=== PATIENT | male | born 1975 | race Hispanic/Latino ===

== ENCOUNTER 2022-04-24 11:35 | Inpatient (IN) | payer OTHER ==
[~2022-04-24] VITALS: Ht 167.6 cm; Wt 101.2 kg
[2022-04-24] VITALS (13 sets, daily range): BP systolic 92–127; BP diastolic 38–53
[2022-04-24 12:10] LABS: BASOPHILS % (AUTO) 0.3 % (0.0-5.0); EOSINOPHILS % (AUTO) 0.7 % (0.0-8.0); LYMPHOCYTES % (AUTO) 18.8 % (21.0-51.0); MEAN CORPUSCULAR HEMOGLOBIN 36.1 pg (27.0-33.0); MEAN CORPUSCULAR HGB CONC 35.4 g/dL (32.0-36.0); MONOCYTES % (AUTO) 16.3 % (3.0-13.0); NEUTROPHILS % (AUTO) 63.3 % (40.0-77.0); NUCLEATED RED BLOOD CELLS 0.2 % (0.0-0.19); PLATELET COUNT (AUTO) 69 K/uL (130-400); RED BLOOD CELL COUNT(AUTO) 2.55 MIL/uL (4.50-6.20); RED CELL DISTRIBUTION WIDTH 16.6 % (11.0-15.5); WHITE BLOOD COUNT (AUTO) 15.4 K/uL (4.8-10.8)
[2022-04-24 12:22] LABS: CREATININE 1.4 mg/dL (0.5-1.5); INR 2.29 (0.85-1.15); POTASSIUM 3.5 mmol/L (3.5-5.1); PROTHROMBIN TIME 23.8 SEC (9.6-11.6)
[2022-04-24 12:24] LABS: PARTIAL THROMBOPLASTIN TIME 40.2 SEC (26.3-35.5)
[2022-04-24 12:27] LABS: ALBUMIN 2.2 g/dL (3.5-5.0); TOTAL PROTEIN, SERUM 5.7 g/dL (6.0-8.3)
[2022-04-24] MEDS ORDERED: PHARMACY COMMUNICATION MISC SCH (12:30)
[2022-04-24] MEDS ORDERED: 0.9% NACL 500ML IV.SOLN 500 ML IV ONE (13:00)
[2022-04-24] MEDS ORDERED: DIAZEPAM 5 MG/ML 2 ML SYG IVP ONE (13:00)
[2022-04-24] MEDS ORDERED: PANTOPRAZOLE 40 MG/VIAL IVP ONE (13:00)
[2022-04-24] MEDS ORDERED: ROCURONIUM BROMIDE 10MG/1ML 5ML VL IV ONE (13:34)
[2022-04-24] MEDS ORDERED: ETOMIDATE 20MG VIAL IVP ONE (13:34)
[2022-04-24 13:54] LABS: PLATELET MORPHOLOGY COMMENT DECREASED
[2022-04-24] MEDS ORDERED: OCTREOTIDE ACETATE 100 MCG/ML AMP IV ONE (14:00)
[2022-04-24] MEDS ORDERED: LACTULOSE 20 GM/30 ML UDCUP PR ONE (14:00)
[2022-04-24] MEDS ORDERED: PHYTONADIONE 10 MG in 0.9%NACL 50ML 50 ML IVPB SCH (14:00)
[2022-04-24] MEDS ORDERED: THIAMINE HCL 100 MG/ML 2ML VIAL IVP SCH (14:00)
[2022-04-24] MEDS ORDERED: CEFTRIAXONE 1G VIAL IVP SCH (14:00)
[2022-04-24] MEDS ORDERED: FOLIC ACID 5 MG/ML VIAL IV ONE (14:00)
[2022-04-24] MEDS ORDERED: OCTREOTIDE ACETATE 1,250 MCG in 0.9% NACL 250ML 250 ML IV SCH (14:00)
[2022-04-24 14:10] LABS: HEMATOCRIT 24.2 % (42-54)
[2022-04-24] MEDS: LACTATED RINGERS 1000ML 1,000 ML IV SCH ×2 (14:24→20:35)
[2022-04-24] MEDS: FOLIC ACID 5 MG/ML VIAL IV SCH (14:45)
[2022-04-24] MEDS: THIAMINE HCL 100 MG/ML 2ML VIAL IVP SCH (14:47)
[2022-04-24] MEDS ORDERED: PROPOFOL 1000 MG/100 ML 100 ML IV ONE (14:58)
[2022-04-24] MEDS ORDERED: PROPOFOL 1000 MG/100 ML 100 ML IV SCH (15:00)
[2022-04-24] MEDS: LACTULOSE 20 GM/30 ML UDCUP PO SCH ×2 (15:00→20:37)
[2022-04-24] MEDS ORDERED: ETOMIDATE 20MG VIAL IVP SCH (15:00)
[2022-04-24] MEDS: RIFAXIMIN 550 MG TABLET PO SCH ×2 (15:08→20:37)
[2022-04-24 15:10] LABS: APPEARANCE,URINE CLEAR (CLEAR); BILIRUBIN,URINE MODERATE (NEGATIVE); COLOR,URINE YELLOW (YELLOW); GLUCOSE, URINE (UA) NEGATIVE (NEGATIVE); KETONES,URINE NEGATIVE (NEGATIVE); LEUKOCYTE ESTERASE ,URINE NEGATIVE (NEGATIVE); NITRATE,URINE NEGATIVE (NEGATIVE); OCCULT BLOOD,URINE NEGATIVE (NEGATIVE); PROTEIN,URINE NEGATIVE (NEGATIVE)
[2022-04-24 15:18] LABS: AMPHET/METH SCREEN,URINE NEGATIVE (NEGATIVE); BARBITURATE SCREEN, URINE NEGATIVE (NEGATIVE); BENZODIAZEPINES SCREEN,URINE NEGATIVE (NEGATIVE); CANNABINOID SCREEN,URINE NEGATIVE (NEGATIVE); COCAINE SCREEN,URINE NEGATIVE (NEGATIVE); OPIATE SCREEN,URINE NEGATIVE (NEGATIVE); PHENCYCLIDINE SCREEN,URINE NEGATIVE (NEGATIVE)
[2022-04-24 15:26] LABS: BACTERIA,URINE Rare /HPF (None Seen); MUCUS,URINE None Seen LPF (None Seen); RBC,URINE 0-1 /HPF (0-1); SQUAMOUS EPITHELIAL CELL,UR Rare /HPF (0-2); WBC,URINE 0-1 /HPF (0-1)
[2022-04-24] MEDS: PANTOPRAZOLE 40MG INJ 80 MG in 0.9%NACL 100ML 100 ML IVP SCH (15:35)
[2022-04-24 15:52] LABS: ABG BASE EXCESS 10.6 mmol/L (-2.0-3.0); ABG HCO3 33.1 mmol/L (21.0-28.0); ABG OXYGEN SATURATION 96.7 % (95.0-99.0); ABG PCO2 37 mmHg (35-48)
[2022-04-24 16:19] LABS: BASOPHILS % (AUTO) 0.4 % (0.0-5.0); EOSINOPHILS % (AUTO) 0.7 % (0.0-8.0); HEMATOCRIT 23.5 % (42-54); LYMPHOCYTES % (AUTO) 17.2 % (21.0-51.0); MEAN CORPUSCULAR HEMOGLOBIN 35.3 pg (27.0-33.0); MEAN CORPUSCULAR HGB CONC 34.9 g/dL (32.0-36.0); MEAN CORPUSCULAR VOLUME 101.3 fL (79-99); MONOCYTES % (AUTO) 16.1 % (3.0-13.0); NUCLEATED RED BLOOD CELLS 0.1 % (0.0-0.19); PLATELET COUNT (AUTO) 66 K/uL (130-400); RED BLOOD CELL COUNT(AUTO) 2.32 MIL/uL (4.50-6.20); WHITE BLOOD COUNT (AUTO) 14.3 K/uL (4.8-10.8)
[2022-04-24 16:34] LABS: CREATININE 1.3 mg/dL (0.5-1.5); POTASSIUM 3.4 mmol/L (3.5-5.1); TOTAL PROTEIN, SERUM 5.1 g/dL (6.0-8.3)
[2022-04-24] MEDS: ZOSYN 3.375GM +NS 50ML IV SCH ×2 (16:57→20:26)
[2022-04-24] MEDS: PROPOFOL 1000 MG/100 ML 100 ML IV SCH (20:26)
[2022-04-24 22:38] LABS: ABG BASE EXCESS 9.5 mmol/L (-2.0-3.0); ABG HCO3 31.8 mmol/L (21.0-28.0); ABG OXYGEN SATURATION 97.2 % (95.0-99.0); ABG PCO2 35 mmHg (35-48)
[2022-04-24] MEDS: IPRATROPIUM/ALBUTEROL SULFATE 3 ML SOLUTION IH SCH (23:36)
[2022-04-25] VITALS (66 sets, daily range): BP systolic 90–136; BP diastolic 39–63
[2022-04-25] MEDS: NOREPINEPHRIN 4MG/NS 250ML 250 ML IV SCH ×4 (00:20→21:18)
[2022-04-25] MEDS: PANTOPRAZOLE 40MG INJ 80 MG in 0.9%NACL 100ML 100 ML IVP SCH ×3 (00:20→20:24)
[2022-04-25] MEDS ORDERED: DIPH25TA20 PO (01:09)
[2022-04-25] MEDS ORDERED: AMOX500T2 PO (01:09)
[2022-04-25] MEDS ORDERED: SPIR100T5 PO (01:09)
[2022-04-25] MEDS ORDERED: FURO40TA5 PO (01:09)
[2022-04-25] MEDS ORDERED: IRON1TAB90 PO (01:09)
[2022-04-25] MEDS ORDERED: METO5TAB2 PO (01:09)
[2022-04-25] MEDS ORDERED: ONDA22I IM (01:09)
[2022-04-25] MEDS ORDERED: CLAR-44 PO (01:09)
[2022-04-25] MEDS ORDERED: OMEP40CA21 PO (01:09)
[2022-04-25 01:19] LABS: HEMATOCRIT 24.1 % (42-54)
[2022-04-25] MEDS: PROPOFOL 1000 MG/100 ML 100 ML IV SCH ×4 (01:55→19:44)
[2022-04-25] MEDS: LACTULOSE 20 GM/30 ML UDCUP PO SCH ×2 (03:16→07:43)
[2022-04-25] MEDS: ZOSYN 3.375GM +NS 50ML IV SCH ×3 (05:01→20:25)
[2022-04-25 05:19] LABS: HEMATOCRIT 24.9 % (42-54)
[2022-04-25 05:43] LABS: CREATININE 1.4 mg/dL (0.5-1.5); TOTAL PROTEIN, SERUM 5.4 g/dL (6.0-8.3)
[2022-04-25] MEDS: IPRATROPIUM/ALBUTEROL SULFATE 3 ML SOLUTION IH SCH ×4 (06:36→23:24)
[2022-04-25] MEDS: RIFAXIMIN 550 MG TABLET PO SCH ×2 (07:56→20:25)
[2022-04-25 09:22] LABS: HEMATOCRIT 23.5 % (42-54)
[2022-04-25] MEDS: THIAMINE HCL 100 MG/ML 2ML VIAL IVP SCH (09:45)
[2022-04-25] MEDS: FOLIC ACID 5 MG/ML VIAL IV SCH (09:46)
[2022-04-25] MEDS ORDERED: COMPOUND IV REFRIGERATED 1 EACH IVSOLN MISC PRN (10:00)
[2022-04-25] MEDS: LACTULOSE 20 GM/30 ML UDCUP NG SCH ×3 (13:15→21:23)
[2022-04-25] MEDS: LACTATED RINGERS 1000ML 1,000 ML IV SCH (13:16)
[2022-04-25] MEDS ORDERED: MIDODRINE HCL 5 MG TABLET PO SCH (14:00)
[2022-04-25 14:58] LABS: HEMATOCRIT 24.2 % (42-54)
[2022-04-25] MEDS ORDERED: ARTIFICAL TEARS SOL 15 ML OU PRN (17:30)
[2022-04-25 21:07] LABS: HEMATOCRIT 25.8 % (42-54)
[2022-04-25] MEDS: MIDODRINE HCL 5 MG TABLET PO SCH (21:22)
[2022-04-26] VITALS (98 sets, daily range): BP systolic 92–134; BP diastolic 41–65
[2022-04-26] MEDS: LACTULOSE 20 GM/30 ML UDCUP NG SCH ×6 (02:00→16:01)
[2022-04-26] MEDS: PROPOFOL 1000 MG/100 ML 100 ML IV SCH ×5 (02:07→20:45)
[2022-04-26] MEDS: LACTATED RINGERS 1000ML 1,000 ML IV SCH (02:16)
[2022-04-26 03:38] LABS: ABG BASE EXCESS 10.4 mmol/L (-2.0-3.0); ABG HCO3 34.5 mmol/L (21.0-28.0); ABG OXYGEN SATURATION 96.2 % (95.0-99.0); ABG PCO2 45 mmHg (35-48)
[2022-04-26 03:51] LABS: BASOPHILS % (AUTO) 0.6 % (0.0-5.0); EOSINOPHILS % (AUTO) 2.2 % (0.0-8.0); HEMATOCRIT 23.2 % (42-54); LYMPHOCYTES % (AUTO) 17.8 % (21.0-51.0); MEAN CORPUSCULAR HEMOGLOBIN 36.2 pg (27.0-33.0); MEAN CORPUSCULAR HGB CONC 34.5 g/dL (32.0-36.0); NEUTROPHILS % (AUTO) 57.7 % (40.0-77.0); PLATELET COUNT (AUTO) 85 K/uL (130-400); RED BLOOD CELL COUNT(AUTO) 2.21 MIL/uL (4.50-6.20); RED CELL DISTRIBUTION WIDTH 19.1 % (11.0-15.5); WHITE BLOOD COUNT (AUTO) 12.7 K/uL (4.8-10.8)
[2022-04-26 04:13] LABS: ALANINE AMINOTRANSFERASE 76 U/L (12-78); ALBUMIN 1.9 g/dL (3.5-5.0); AMMONIA 57 umol/L (11-32); ASPARTATE AMINOTRANSFERASE 165 U/L (10-37); CARBON DIOXIDE 32 mmol/L (21-32); CHLORIDE 108 mmol/L (101-111); CREATININE 1.4 mg/dL (0.5-1.5); GLOMERULAR FILTR. RATE CALC 58 mL/min (>60); GLUCOSE,RANDOM 162 mg/dL (70-105); SODIUM SERUM 146 mmol/L (136-145); TOTAL PROTEIN, SERUM 5.3 g/dL (6.0-8.3); UREA NITROGEN, BLOOD 50 mg/dL (7-18)
[2022-04-26] MEDS: ZOSYN 3.375GM +NS 50ML IV SCH ×3 (05:15→21:38)
[2022-04-26] MEDS: PANTOPRAZOLE 40MG INJ 80 MG in 0.9%NACL 100ML 100 ML IVP SCH ×2 (05:16→15:47)
[2022-04-26] MEDS: MIDODRINE HCL 5 MG TABLET PO SCH ×3 (05:16→21:38)
[2022-04-26] MEDS ORDERED: POTASSIUM CHLORIDE 20MEQ/100ML 100 ML IV ONE (05:46)
[2022-04-26] MEDS: POTASSIUM CHLORIDE 20MEQ/100ML 100 ML IV PRN ×2 (05:50→07:40)
[2022-04-26] MEDS ORDERED: MAGNESIUM 2GM PREMIX 50ML 50 ML IV PRN (06:00)
[2022-04-26] MEDS: IPRATROPIUM/ALBUTEROL SULFATE 3 ML SOLUTION IH SCH ×4 (06:32→23:13)
[2022-04-26 07:11] LABS: INR 1.8 (0.85-1.15)
[2022-04-26] MEDS: RIFAXIMIN 550 MG TABLET PO SCH ×2 (08:20→21:38)
[2022-04-26] MEDS: THIAMINE HCL 100 MG/ML 2ML VIAL IVP SCH (08:20)
[2022-04-26] MEDS: FOLIC ACID 5 MG/ML VIAL IV SCH (08:23)
[2022-04-26] MEDS: DEXTROSE 5%-WATER 1,000 ML IV SCH ×2 (09:58→21:39)
[2022-04-26 13:25] LABS: HEMATOCRIT 25.2 % (42-54)
[2022-04-26 14:10] LABS: CREATININE 1.3 mg/dL (0.5-1.5); POTASSIUM 3.3 mmol/L (3.5-5.1)
[2022-04-27] VITALS (57 sets, daily range): BP systolic 91–142; BP diastolic 44–74
[2022-04-27] MEDS: LACTULOSE 20 GM/30 ML UDCUP NG SCH ×4 (01:12→17:57)
[2022-04-27] MEDS: PANTOPRAZOLE 40MG INJ 80 MG in 0.9%NACL 100ML 100 ML IVP SCH ×2 (01:13→10:50)
[2022-04-27] MEDS: PROPOFOL 1000 MG/100 ML 100 ML IV SCH ×2 (01:30→07:09)
[2022-04-27 04:40] LABS: HEMATOCRIT 25.2 % (42-54); MEAN CORPUSCULAR HEMOGLOBIN 36.5 pg (27.0-33.0); MEAN CORPUSCULAR HGB CONC 33.7 g/dL (32.0-36.0); MEAN CORPUSCULAR VOLUME 108.2 fL (79-99); PLATELET COUNT (AUTO) 87 K/uL (130-400); RED BLOOD CELL COUNT(AUTO) 2.33 MIL/uL (4.50-6.20); RED CELL DISTRIBUTION WIDTH 19.9 % (11.0-15.5); WHITE BLOOD COUNT (AUTO) 12.2 K/uL (4.8-10.8)
[2022-04-27 04:56] LABS: CREATININE 1.3 mg/dL (0.5-1.5); POTASSIUM 3.1 mmol/L (3.5-5.1)
[2022-04-27 05:28] LABS: BASOPHILS % (AUTO) 0.9 % (0.0-5.0); EOSINOPHILS % (AUTO) 3.8 % (0.0-8.0); LYMPHOCYTES % (AUTO) 20.2 % (21.0-51.0); MONOCYTES % (AUTO) 26.1 % (3.0-13.0); NEUTROPHILS % (AUTO) 48.3 % (40.0-77.0)
[2022-04-27] MEDS ORDERED: POTASSIUM CHLORIDE 10MEQ/100ML 100 ML IV PRN (05:30)
[2022-04-27] MEDS: ZOSYN 3.375GM +NS 50ML IV SCH ×3 (06:12→20:21)
[2022-04-27] MEDS: MIDODRINE HCL 5 MG TABLET PO SCH (06:13)
[2022-04-27] MEDS: POTASSIUM CHLORIDE 10% ELIXIR 20 MEQ/15 ML UDCUP PO PRN ×3 (06:15→10:07)
[2022-04-27] MEDS: IPRATROPIUM/ALBUTEROL SULFATE 3 ML SOLUTION IH SCH ×3 (06:55→18:24)
[2022-04-27 07:05] LABS: CRP QUANTITATIVE 30.4 mg/L (0.00-9.0); MAGNESIUM 2.9 mg/dL (1.80-2.40)
[2022-04-27] MEDS: THIAMINE HCL 100 MG/ML 2ML VIAL IVP SCH (08:01)
[2022-04-27] MEDS: FOLIC ACID 5 MG/ML VIAL IV SCH (08:02)
[2022-04-27] MEDS: RIFAXIMIN 550 MG TABLET PO SCH ×2 (08:02→20:18)
[2022-04-27] MEDS: DEXTROSE 5%-WATER 1,000 ML IV SCH (10:50)
[2022-04-27 11:32] LABS: ABG HCO3 32.4 mmol/L (21.0-28.0); ABG OXYGEN SATURATION 96.4 % (95.0-99.0); ABG PCO2 49 mmHg (35-48)
[2022-04-27] MEDS ORDERED: MIDODRINE HCL 5 MG TABLET PO PRN (12:00)
[2022-04-27] MEDS ORDERED: CHLORDIAZEPOXIDE HCL 25 MG CAP PO PRN (13:00)
[2022-04-27] MEDS: PANTOPRAZOLE 40 MG/VIAL IVP SCH (20:18)
[2022-04-28] VITALS (14 sets, daily range): BP systolic 100–120; BP diastolic 48–66
[2022-04-28] MEDS: LACTULOSE 20 GM/30 ML UDCUP NG SCH ×4 (00:06→17:27)
[2022-04-28] MEDS: IPRATROPIUM/ALBUTEROL SULFATE 3 ML SOLUTION IH SCH ×5 (00:56→23:25)
[2022-04-28 03:34] LABS: HEMATOCRIT 24.4 % (42-54); MEAN CORPUSCULAR HEMOGLOBIN 35.7 pg (27.0-33.0); MEAN CORPUSCULAR HGB CONC 32.8 g/dL (32.0-36.0); MEAN CORPUSCULAR VOLUME 108.9 fL (79-99); RED BLOOD CELL COUNT(AUTO) 2.24 MIL/uL (4.50-6.20); RED CELL DISTRIBUTION WIDTH 19.7 % (11.0-15.5); WHITE BLOOD COUNT (AUTO) 11.6 K/uL (4.8-10.8)
[2022-04-28 04:01] LABS: ALBUMIN 1.9 g/dL (3.5-5.0); CREATININE 1.1 mg/dL (0.5-1.5); POTASSIUM 3.6 mmol/L (3.5-5.1); TOTAL PROTEIN, SERUM 5.6 g/dL (6.0-8.3)
[2022-04-28] MEDS: ZOSYN 3.375GM +NS 50ML IV SCH ×3 (05:49→20:19)
[2022-04-28] MEDS: DEXTROSE 5%-WATER 1,000 ML IV SCH (06:00)
[2022-04-28] MEDS: POTASSIUM CHLORIDE 10% ELIXIR 20 MEQ/15 ML UDCUP PO PRN ×2 (07:48→10:00)
[2022-04-28] MEDS: PANTOPRAZOLE 40 MG/VIAL IVP SCH ×2 (08:04→20:20)
[2022-04-28] MEDS: RIFAXIMIN 550 MG TABLET PO SCH ×2 (08:04→20:20)
[2022-04-28] MEDS: THIAMINE HCL 100 MG/ML 2ML VIAL IVP SCH (08:04)
[2022-04-28] MEDS: FOLIC ACID 5 MG/ML VIAL IV SCH (09:58)
[2022-04-29] VITALS (7 sets, daily range): BP systolic 93–113; BP diastolic 45–73
[2022-04-29] MEDS: LACTULOSE 20 GM/30 ML UDCUP NG SCH ×4 (00:13→22:20)
[2022-04-29] MEDS: ZOSYN 3.375GM +NS 50ML IV SCH ×3 (05:07→22:30)
[2022-04-29] MEDS: IPRATROPIUM/ALBUTEROL SULFATE 3 ML SOLUTION IH SCH ×4 (06:48→23:35)
[2022-04-29 07:06] LABS: BASOPHILS % (AUTO) 1.1 % (0.0-5.0); EOSINOPHILS % (AUTO) 1.7 % (0.0-8.0); LYMPHOCYTES % (AUTO) 20.6 % (21.0-51.0); MEAN CORPUSCULAR HEMOGLOBIN 36.1 pg (27.0-33.0); MEAN CORPUSCULAR HGB CONC 33.1 g/dL (32.0-36.0); MEAN CORPUSCULAR VOLUME 109.2 fL (79-99); MONOCYTES % (AUTO) 24.6 % (3.0-13.0); NEUTROPHILS % (AUTO) 49.7 % (40.0-77.0); NUCLEATED RED BLOOD CELLS 0.2 % (0.0-0.19); PLATELET COUNT (AUTO) 119 K/uL (130-400); RED BLOOD CELL COUNT(AUTO) 2.38 MIL/uL (4.50-6.20); RED CELL DISTRIBUTION WIDTH 19.6 % (11.0-15.5)
[2022-04-29 07:24] LABS: ALBUMIN 2.1 g/dL (3.5-5.0); CREATININE 0.9 mg/dL (0.5-1.5); POTASSIUM 4.1 mmol/L (3.5-5.1); TOTAL PROTEIN, SERUM 6.1 g/dL (6.0-8.3)
[2022-04-29] MEDS: RIFAXIMIN 550 MG TABLET PO SCH ×2 (10:25→22:20)
[2022-04-29] MEDS: THIAMINE HCL 100 MG/ML 2ML VIAL IVP SCH (10:25)
[2022-04-29] MEDS: PANTOPRAZOLE 40 MG/VIAL IVP SCH ×2 (10:25→22:20)
[2022-04-29] MEDS: FOLIC ACID 5 MG/ML VIAL IV SCH (10:28)
[2022-04-29] MEDS ORDERED: DEXTROSE 5%-WATER 500 ML IV ONE (11:30)
[2022-04-29 17:19] LABS: POTASSIUM 3.3 mmol/L (3.5-5.1)
[2022-04-29] MEDS: KCL 20 MEQ ERTAB PO PRN (17:27)
[2022-04-30 04:50] VITALS: BP 111/56
[2022-04-30] MEDS: ZOSYN 3.375GM +NS 50ML IV SCH ×3 (05:23→21:15)
[2022-04-30] MEDS: IPRATROPIUM/ALBUTEROL SULFATE 3 ML SOLUTION IH SCH ×4 (06:33→23:24)
[2022-04-30 07:03] LABS: BASOPHILS % (AUTO) 0.8 % (0.0-5.0); EOSINOPHILS % (AUTO) 1.9 % (0.0-8.0); HEMATOCRIT 22.6 % (42-54); LYMPHOCYTES % (AUTO) 26.2 % (21.0-51.0); MEAN CORPUSCULAR HEMOGLOBIN 36.2 pg (27.0-33.0); MEAN CORPUSCULAR HGB CONC 34.1 g/dL (32.0-36.0); MEAN CORPUSCULAR VOLUME 106.1 fL (79-99); MONOCYTES % (AUTO) 21.3 % (3.0-13.0); NEUTROPHILS % (AUTO) 47.7 % (40.0-77.0); PLATELET COUNT (AUTO) 147 K/uL (130-400); RED BLOOD CELL COUNT(AUTO) 2.13 MIL/uL (4.50-6.20); RED CELL DISTRIBUTION WIDTH 18.5 % (11.0-15.5); WHITE BLOOD COUNT (AUTO) 13.5 K/uL (4.8-10.8)
[2022-04-30 07:04] LABS: NUCLEATED RED BLOOD CELLS 0.4 % (0.0-0.19)
[2022-04-30 07:23] LABS: ALBUMIN 1.9 g/dL (3.5-5.0); POTASSIUM 3.5 mmol/L (3.5-5.1); TOTAL PROTEIN, SERUM 5.7 g/dL (6.0-8.3)
[2022-04-30 08:00] VITALS: BP 109/63
[2022-04-30] MEDS: FOLIC ACID 5 MG/ML VIAL IV SCH (09:41)
[2022-04-30] MEDS: PANTOPRAZOLE 40 MG/VIAL IVP SCH ×2 (09:43→21:14)
[2022-04-30] MEDS: LACTULOSE 20 GM/30 ML UDCUP NG SCH ×4 (09:47→21:14)
[2022-04-30] MEDS: THIAMINE HCL 100 MG/ML 2ML VIAL IVP SCH (09:47)
[2022-04-30] MEDS: RIFAXIMIN 550 MG TABLET PO SCH ×3 (09:48→21:14)
[2022-04-30 12:00] VITALS: BP 103/57
[2022-04-30 16:00] VITALS: BP 121/71
[2022-04-30 20:33] VITALS: BP 117/67
[2022-04-30] MEDS ORDERED: ONDANSETRON 4MG INJ ONE (21:10)
[2022-05-01 00:26] VITALS: BP 115/69
[2022-05-01] MEDS: RIFAXIMIN 550 MG TABLET PO SCH ×2 (03:36→21:15)
[2022-05-01] MEDS: LACTULOSE 20 GM/30 ML UDCUP NG SCH ×3 (03:36→21:15)
[2022-05-01 04:19] VITALS: BP 111/63
[2022-05-01] MEDS: ZOSYN 3.375GM +NS 50ML IV SCH ×3 (05:05→21:15)
[2022-05-01] MEDS: IPRATROPIUM/ALBUTEROL SULFATE 3 ML SOLUTION IH SCH ×4 (06:11→23:44)
[2022-05-01 06:51] LABS: BASOPHILS % (AUTO) 0.9 % (0.0-5.0); EOSINOPHILS % (AUTO) 1.3 % (0.0-8.0); HEMATOCRIT 22.9 % (42-54); LYMPHOCYTES % (AUTO) 22.2 % (21.0-51.0); MEAN CORPUSCULAR HEMOGLOBIN 36.7 pg (27.0-33.0); MEAN CORPUSCULAR HGB CONC 34.9 g/dL (32.0-36.0); MONOCYTES % (AUTO) 17.7 % (3.0-13.0); NEUTROPHILS % (AUTO) 56.6 % (40.0-77.0); NUCLEATED RED BLOOD CELLS 0.2 % (0.0-0.19); PLATELET COUNT (AUTO) 149 K/uL (130-400); RED BLOOD CELL COUNT(AUTO) 2.18 MIL/uL (4.50-6.20); RED CELL DISTRIBUTION WIDTH 18.3 % (11.0-15.5); WHITE BLOOD COUNT (AUTO) 12.7 K/uL (4.8-10.8)
[2022-05-01 07:04] LABS: INR 1.67 (0.85-1.15); PROTHROMBIN TIME 17.7 SEC (9.6-11.6)
[2022-05-01 07:08] LABS: ALBUMIN 1.9 g/dL (3.5-5.0); POTASSIUM 3.5 mmol/L (3.5-5.1); TOTAL PROTEIN, SERUM 5.9 g/dL (6.0-8.3)
[2022-05-01 09:22] VITALS: BP 132/72
[2022-05-01] MEDS: PANTOPRAZOLE 40 MG/VIAL IVP SCH ×2 (10:23→21:14)
[2022-05-01] MEDS: THIAMINE HCL 100 MG/ML 2ML VIAL IVP SCH (10:23)
[2022-05-01] MEDS: FOLIC ACID 5 MG/ML VIAL IV SCH (10:24)
[2022-05-01 11:00] VITALS: BP 127/64
[2022-05-01 16:00] VITALS: BP 112/63
[2022-05-01 20:00] VITALS: BP 104/50
[2022-05-01] MEDS: POTASSIUM CHLORIDE 10% ELIXIR 20 MEQ/15 ML UDCUP PO PRN (21:31)
[2022-05-02 00:28] VITALS: BP 106/47
[2022-05-02 04:43] VITALS: BP 104/54
[2022-05-02] MEDS: ZOSYN 3.375GM +NS 50ML IV SCH ×3 (05:02→20:32)
[2022-05-02] MEDS: IPRATROPIUM/ALBUTEROL SULFATE 3 ML SOLUTION IH SCH ×4 (06:40→23:18)
[2022-05-02 07:54] LABS: BASOPHILS % (AUTO) 0.6 % (0.0-5.0); EOSINOPHILS % (AUTO) 1.2 % (0.0-8.0); HEMATOCRIT 21.7 % (42-54); LYMPHOCYTES % (AUTO) 22.5 % (21.0-51.0); MEAN CORPUSCULAR HEMOGLOBIN 35.4 pg (27.0-33.0); MEAN CORPUSCULAR HGB CONC 34.1 g/dL (32.0-36.0); MEAN CORPUSCULAR VOLUME 103.8 fL (79-99); MONOCYTES % (AUTO) 14.6 % (3.0-13.0); NEUTROPHILS % (AUTO) 59.7 % (40.0-77.0); PLATELET COUNT (AUTO) 146 K/uL (130-400); RED BLOOD CELL COUNT(AUTO) 2.09 MIL/uL (4.50-6.20); RED CELL DISTRIBUTION WIDTH 18.7 % (11.0-15.5)
[2022-05-02 08:22] VITALS: BP 115/63
[2022-05-02 09:32] LABS: ALBUMIN 1.8 g/dL (3.5-5.0); POTASSIUM 3.4 mmol/L (3.5-5.1); TOTAL PROTEIN, SERUM 5.9 g/dL (6.0-8.3)
[2022-05-02] MEDS: THIAMINE HCL 100 MG/ML 2ML VIAL IVP SCH (09:35)
[2022-05-02] MEDS: PANTOPRAZOLE 40 MG/VIAL IVP SCH ×2 (09:35→20:32)
[2022-05-02] MEDS: RIFAXIMIN 550 MG TABLET PO SCH ×2 (09:37→20:33)
[2022-05-02] MEDS: LACTULOSE 20 GM/30 ML UDCUP NG SCH ×3 (09:42→20:33)
[2022-05-02] MEDS: FOLIC ACID 5 MG/ML VIAL IV SCH (10:52)
[2022-05-02] MEDS ORDERED: METOCLOPRAMIDE 5 MG TABLET PO PRN (11:30)
[2022-05-02] MEDS ORDERED: DIPHENHYDRAMINE HCL 25 MG CAPSULE PO PRN (11:30)
[2022-05-02 11:54] VITALS: BP 121/65
[2022-05-02] MEDS: BENZONATATE 100 MG CAPSULE PO PRN ×2 (12:17→20:33)
[2022-05-02] MEDS: FLUTICASONE PROPIONATE 50MCG/SPRAY 16 GM BOTTLE EN SCH (13:44)
[2022-05-02] MEDS: CETIRIZINE HCL 5 MG TABLET PO SCH (13:46)
[2022-05-02] MEDS: FUROSEMIDE 40 MG TABLET PO SCH (13:46)
[2022-05-02] MEDS: OSELTAMIVIR PHOSPHATE 75 MG CAP PO SCH ×2 (15:32→20:33)
[2022-05-02 15:55] VITALS: BP 103/50
[2022-05-02 19:00] VITALS: BP 122/67
[2022-05-02] MEDS: KETOROLAC 15MG/ML VIAL (15MG/ML) IV PRN (20:33)
[2022-05-03] VITALS: BP 106/58
[2022-05-03 04:00] VITALS: BP 91/62
[2022-05-03] MEDS: ZOSYN 3.375GM +NS 50ML IV SCH ×3 (05:22→21:00)
[2022-05-03] MEDS: KETOROLAC 15MG/ML VIAL (15MG/ML) IV PRN ×3 (05:24→18:21)
[2022-05-03] MEDS: BENZONATATE 100 MG CAPSULE PO PRN ×2 (05:24→12:10)
[2022-05-03] MEDS: IPRATROPIUM/ALBUTEROL SULFATE 3 ML SOLUTION IH SCH ×4 (06:25→23:20)
[2022-05-03 06:34] LABS: HEMATOCRIT 21.2 % (42-54); MEAN CORPUSCULAR HEMOGLOBIN 35.6 pg (27.0-33.0); MEAN CORPUSCULAR HGB CONC 34.4 g/dL (32.0-36.0); MEAN CORPUSCULAR VOLUME 103.4 fL (79-99); PLATELET COUNT (AUTO) 149 K/uL (130-400); RED BLOOD CELL COUNT(AUTO) 2.05 MIL/uL (4.50-6.20); RED CELL DISTRIBUTION WIDTH 18.7 % (11.0-15.5); WHITE BLOOD COUNT (AUTO) 12.2 K/uL (4.8-10.8)
[2022-05-03 06:51] LABS: ALBUMIN 1.7 g/dL (3.5-5.0); CREATININE 1.2 mg/dL (0.5-1.5); MAGNESIUM 2.1 mg/dL (1.80-2.40); POTASSIUM 3.3 mmol/L (3.5-5.1); TOTAL PROTEIN, SERUM 5.6 g/dL (6.0-8.3)
[2022-05-03 08:00] VITALS: BP 101/66
[2022-05-03] MEDS ORDERED: FUROSEMIDE 40 MG TABLET PO SCH (09:00)
[2022-05-03] MEDS ORDERED: SPIRONOLACTONE 25 MG TAB PO SCH (09:00)
[2022-05-03 11:33] VITALS: BP 126/67
[2022-05-03] MEDS: RIFAXIMIN 550 MG TABLET PO SCH ×2 (11:52→21:01)
[2022-05-03] MEDS: FUROSEMIDE 40 MG TABLET PO SCH (11:52)
[2022-05-03] MEDS: THIAMINE HCL 100 MG/ML 2ML VIAL IVP SCH (11:52)
[2022-05-03] MEDS: PANTOPRAZOLE 40 MG/VIAL IVP SCH ×2 (11:54→21:01)
[2022-05-03] MEDS: OSELTAMIVIR PHOSPHATE 75 MG CAP PO SCH ×2 (11:54→21:01)
[2022-05-03] MEDS: LACTULOSE 20 GM/30 ML UDCUP NG SCH ×3 (11:55→21:01)
[2022-05-03] MEDS: KCL 20 MEQ ERTAB PO PRN (11:57)
[2022-05-03] MEDS: CETIRIZINE HCL 5 MG TABLET PO SCH (12:00)
[2022-05-03] MEDS: FOLIC ACID 5 MG/ML VIAL IV SCH (12:11)
[2022-05-03 16:00] VITALS: BP 95/54
[2022-05-03] MEDS: FLUTICASONE PROPIONATE 50MCG/SPRAY 16 GM BOTTLE EN SCH (18:14)
[2022-05-03 20:56] VITALS: BP 107/53
[2022-05-04 00:48] VITALS: BP 112/45
[2022-05-04 04:19] VITALS: BP 98/48
[2022-05-04 05:04] LABS: HEMATOCRIT 21.4 % (42-54); MEAN CORPUSCULAR HEMOGLOBIN 35.4 pg (27.0-33.0); MEAN CORPUSCULAR HGB CONC 34.1 g/dL (32.0-36.0); MEAN CORPUSCULAR VOLUME 103.9 fL (79-99); RED BLOOD CELL COUNT(AUTO) 2.06 MIL/uL (4.50-6.20); RED CELL DISTRIBUTION WIDTH 19.4 % (11.0-15.5); WHITE BLOOD COUNT (AUTO) 14.2 K/uL (4.8-10.8)
[2022-05-04 05:23] LABS: CREATININE 1.4 mg/dL (0.5-1.5); POTASSIUM 3.8 mmol/L (3.5-5.1)
[2022-05-04] MEDS: ZOSYN 3.375GM +NS 50ML IV SCH ×3 (05:43→21:25)
[2022-05-04] MEDS: IPRATROPIUM/ALBUTEROL SULFATE 3 ML SOLUTION IH SCH ×4 (06:26→23:33)
[2022-05-04 08:00] VITALS: BP 107/52
[2022-05-04] MEDS: FLUTICASONE PROPIONATE 50MCG/SPRAY 16 GM BOTTLE EN SCH (08:31)
[2022-05-04] MEDS: OSELTAMIVIR PHOSPHATE 75 MG CAP PO SCH ×2 (08:32→21:26)
[2022-05-04] MEDS: CETIRIZINE HCL 5 MG TABLET PO SCH (08:32)
[2022-05-04] MEDS: RIFAXIMIN 550 MG TABLET PO SCH ×2 (08:32→21:26)
[2022-05-04] MEDS: SPIRONOLACTONE 25 MG TAB PO SCH (08:32)
[2022-05-04] MEDS: KCL 20 MEQ ERTAB PO PRN ×2 (08:32→15:15)
[2022-05-04] MEDS: LACTULOSE 20 GM/30 ML UDCUP NG SCH ×3 (08:33→21:26)
[2022-05-04] MEDS: PANTOPRAZOLE 40 MG/VIAL IVP SCH ×2 (08:33→21:26)
[2022-05-04] MEDS: FUROSEMIDE 20 MG TABLET PO SCH (08:33)
[2022-05-04] MEDS: THIAMINE HCL 100 MG/ML 2ML VIAL IVP SCH (08:33)
[2022-05-04] MEDS: FOLIC ACID 5 MG/ML VIAL IV SCH (08:34)
[2022-05-04 12:00] VITALS: BP 104/71
[2022-05-04] MEDS: KETOROLAC 15MG/ML VIAL (15MG/ML) IV PRN ×2 (12:18→22:57)
[2022-05-04 16:00] VITALS: BP 86/53
[2022-05-04 20:00] VITALS: BP 110/59
[2022-05-04 20:13] LABS: APPEARANCE BODY FLUID SLIGHTLY CLOUDY (CLEAR); COLOR,BODY FLUID YELLOW (LT YELLOW); SPECIMENTYPE,BODY FLUID ASCITES; TOTAL VOLUME,BODY FLUID 1800 mL
[2022-05-04 20:14] LABS: BODY FLUID RBC 169 /cu. mm.; BODY FLUID WBC 49 /cu. mm.
[2022-05-04 21:25] LABS: BF LYMPHOCYTE 7 %; BF MONOCYTE 2 %; BF OTHER CELLS 3
[2022-05-05] VITALS: BP 108/60
[2022-05-05 04:00] VITALS: BP 103/46
[2022-05-05] MEDS: ZOSYN 3.375GM +NS 50ML IV SCH ×3 (04:50→20:30)
[2022-05-05 05:21] LABS: MEAN CORPUSCULAR HEMOGLOBIN 35.9 pg (27.0-33.0); MEAN CORPUSCULAR HGB CONC 34.3 g/dL (32.0-36.0); MEAN CORPUSCULAR VOLUME 104.5 fL (79-99); RED BLOOD CELL COUNT(AUTO) 1.98 MIL/uL (4.50-6.20); RED CELL DISTRIBUTION WIDTH 19.7 % (11.0-15.5); WHITE BLOOD COUNT (AUTO) 13.9 K/uL (4.8-10.8)
[2022-05-05 05:28] LABS: HEMATOCRIT 20.7 % (42-54)
[2022-05-05 05:33] LABS: CREATININE 1.4 mg/dL (0.5-1.5); POTASSIUM 3.9 mmol/L (3.5-5.1)
[2022-05-05] MEDS: IPRATROPIUM/ALBUTEROL SULFATE 3 ML SOLUTION IH SCH ×4 (07:20→23:00)
[2022-05-05 08:35] VITALS: BP 119/60
[2022-05-05] MEDS: SPIRONOLACTONE 25 MG TAB PO SCH ×3 (08:35→20:32)
[2022-05-05] MEDS: RIFAXIMIN 550 MG TABLET PO SCH ×2 (08:35→20:32)
[2022-05-05] MEDS: LACTULOSE 20 GM/30 ML UDCUP NG SCH ×3 (08:36→20:53)
[2022-05-05] MEDS: PANTOPRAZOLE 40 MG/VIAL IVP SCH ×2 (08:36→20:31)
[2022-05-05] MEDS: THIAMINE HCL 100 MG/ML 2ML VIAL IVP SCH (08:36)
[2022-05-05] MEDS: OSELTAMIVIR PHOSPHATE 75 MG CAP PO SCH ×2 (08:36→20:31)
[2022-05-05] MEDS: FUROSEMIDE 20 MG TABLET PO SCH ×3 (08:36→20:32)
[2022-05-05] MEDS: FLUTICASONE PROPIONATE 50MCG/SPRAY 16 GM BOTTLE EN SCH (08:37)
[2022-05-05] MEDS: FOLIC ACID 5 MG/ML VIAL IV SCH (08:37)
[2022-05-05] MEDS: CETIRIZINE HCL 5 MG TABLET PO SCH (08:38)
[2022-05-05] MEDS: BENZONATATE 100 MG CAPSULE PO PRN (08:47)
[2022-05-05 09:06] LABS: HEMATOCRIT 23.6 % (42-54)
[2022-05-05 12:00] VITALS: BP 121/65
[2022-05-05 16:00] VITALS: BP_SYST 121; BP_SYST 137; BP_DIAS 71; BP_DIAS 75
[2022-05-05 20:00] VITALS: BP 115/74
[2022-05-05] MEDS: KETOROLAC 15MG/ML VIAL (15MG/ML) IV PRN (20:31)
[2022-05-06] VITALS: BP 98/42
[2022-05-06 04:00] VITALS: BP 107/55
[2022-05-06 05:02] LABS: BASOPHILS % (AUTO) 0.8 % (0.0-5.0); EOSINOPHILS % (AUTO) 1.9 % (0.0-8.0); MEAN CORPUSCULAR HEMOGLOBIN 35.9 pg (27.0-33.0); MEAN CORPUSCULAR HGB CONC 34.1 g/dL (32.0-36.0); MEAN CORPUSCULAR VOLUME 105.1 fL (79-99); MONOCYTES % (AUTO) 9.5 % (3.0-13.0); PLATELET COUNT (AUTO) 139 K/uL (130-400); RED BLOOD CELL COUNT(AUTO) 1.95 MIL/uL (4.50-6.20); RED CELL DISTRIBUTION WIDTH 19.4 % (11.0-15.5); WHITE BLOOD COUNT (AUTO) 13.2 K/uL (4.8-10.8)
[2022-05-06 05:11] LABS: HEMATOCRIT 20.5 % (42-54)
[2022-05-06 05:14] LABS: CREATININE 1.2 mg/dL (0.5-1.5); POTASSIUM 4.3 mmol/L (3.5-5.1)
[2022-05-06] MEDS: ZOSYN 3.375GM +NS 50ML IV SCH (05:22)
[2022-05-06] MEDS: IPRATROPIUM/ALBUTEROL SULFATE 3 ML SOLUTION IH SCH (07:15)
[2022-05-06 08:00] VITALS: BP 106/55
[2022-05-06] MEDS: FOLIC ACID 5 MG/ML VIAL IV SCH (08:17)
[2022-05-06] MEDS: PANTOPRAZOLE 40 MG/VIAL IVP SCH (08:17)
[2022-05-06] MEDS: FLUTICASONE PROPIONATE 50MCG/SPRAY 16 GM BOTTLE EN SCH (08:17)
[2022-05-06] MEDS: LACTULOSE 20 GM/30 ML UDCUP NG SCH (08:17)
[2022-05-06] MEDS: THIAMINE HCL 100 MG/ML 2ML VIAL IVP SCH (08:17)
[2022-05-06] MEDS: CETIRIZINE HCL 5 MG TABLET PO SCH (08:18)
[2022-05-06] MEDS: SPIRONOLACTONE 25 MG TAB PO SCH (08:18)
[2022-05-06] MEDS: OSELTAMIVIR PHOSPHATE 75 MG CAP PO SCH (08:18)
[2022-05-06] MEDS: FUROSEMIDE 20 MG TABLET PO SCH (08:18)
[2022-05-06] MEDS: RIFAXIMIN 550 MG TABLET PO SCH (08:18)
[2022-05-06] MEDS: KETOROLAC 15MG/ML VIAL (15MG/ML) IV PRN (08:19)
[2022-05-06 11:51] LABS: BASOPHILS % (AUTO) 0.7 % (0.0-5.0); EOSINOPHILS % (AUTO) 2.2 % (0.0-8.0); HEMATOCRIT 21.9 % (42-54); LYMPHOCYTES % (AUTO) 13.1 % (21.0-51.0); MEAN CORPUSCULAR HEMOGLOBIN 34.9 pg (27.0-33.0); MEAN CORPUSCULAR HGB CONC 33.3 g/dL (32.0-36.0); MEAN CORPUSCULAR VOLUME 104.8 fL (79-99); MONOCYTES % (AUTO) 9.3 % (3.0-13.0); PLATELET COUNT (AUTO) 160 K/uL (130-400); RED BLOOD CELL COUNT(AUTO) 2.09 MIL/uL (4.50-6.20); RED CELL DISTRIBUTION WIDTH 19.6 % (11.0-15.5)
[2022-05-06 12:00] VITALS: BP 100/50
[2022-05-07] MEDS ORDERED: FURO40TA7 PO (17:43)
== END 2022-05-06 13:05 | disposition home or self-care (01) | DRG 208 ==
LOC: EDH 11:35 → EDHIP 13:42 → 2BH 20:05 → 3CH 04-28 21:47
PROVIDERS: ADMIT Hospitalist; ATTEND Hospitalist
PROC: 5A1945Z Respiratory Ventilation, 24-96 Consecutive Hours (ICD-10-PCS; principal; 2022-04-24)
PROC: 0BH17EZ Insertion of Endotracheal Airway into Trachea, Via Natural or Artificial Opening (ICD-10-PCS; 2022-04-24)
PROC: 5A09357 Assistance with Respiratory Ventilation, Less than 24 Consecutive Hours, Continuous Positive Airway Pressure (ICD-10-PCS; 2022-04-27)
PROC: 0W9G3ZZ Drainage of Peritoneal Cavity, Percutaneous Approach (ICD-10-PCS; 2022-05-04)
DX: J69.0 Pneumonitis due to inhalation of food and vomit (principal); E43 Unspecified severe protein-calorie malnutrition; J96.01 Acute respiratory failure with hypoxia; E87.1 Hypo-osmolality and hyponatremia; N17.9 Acute kidney failure, unspecified; E87.2 Acidosis; D68.9 Coagulation defect, unspecified; E87.0 Hyperosmolality and hypernatremia; D62 Acute posthemorrhagic anemia; K92.0 Hematemesis; K92.1 Melena; Z20.822 Contact with and (suspected) exposure to COVID-19; K72.90 Hepatic failure, unspecified without coma; K70.30 Alcoholic cirrhosis of liver without ascites; D69.6 Thrombocytopenia, unspecified; R73.03 Prediabetes; E66.9 Obesity, unspecified; F10.10 Alcohol abuse, uncomplicated; K70.10 Alcoholic hepatitis without ascites; E88.09 Other disorders of plasma-protein metabolism, not elsewhere classified; J10.1 Influenza due to other identified influenza virus with other respiratory manifestations; E87.6 Hypokalemia; Z68.36 Body mass index [BMI] 36.0-36.9, adult; R56.9 Unspecified convulsions; D53.9 Nutritional anemia, unspecified
CPT/HCPCS: 31500; 36415; 36600; 49083; 70450; 71045; 74176; 74230; 76705; 80048; 80053; 80305; 81001; 82140; 82270; 82435; 82803; 82947; 82948; 83036; 83605; 83735; 83880; 84132; 84145; 84295; 84443; 85014; 85018; 85025; 85027; 85610; 85651; 85730; 86140; 86850; 86900; 86901; 87071; 87205; 87635; 87804; 89051; 92610; 92611; 94002; 94003; 94640; 94664; 94760; 97039; C1729; C9113; C9803; G0378; J0696; J1885; J2354; J2405; J2543; J2704; J3360; J3411; J3430; J3480; J3490; J7040; J7050; J7070; J7120; Q0163

== ENCOUNTER 2022-05-07 15:31 | Emergency (ER) | payer OTHER ==
[~2022-05-07] VITALS: Ht 180.3 cm; Wt 103.9 kg
[~2022-05-07 15:31] MED LIST: DIPH25TA20 PO; FURO40TA5 PO; IRON1TAB90 PO; METO5TAB2 PO; OMEP40CA21 PO; ONDA22I IM; SPIR100T5 PO
[2022-05-07] MEDS ORDERED: FUROSEMIDE 40MG VIAL IV ONE (16:30)
[2022-05-07 16:44] LABS: BASOPHILS % (AUTO) 0.6 % (0.0-5.0); EOSINOPHILS % (AUTO) 1.4 % (0.0-8.0); HEMATOCRIT 22.1 % (42-54); LYMPHOCYTES % (AUTO) 17.3 % (21.0-51.0); MEAN CORPUSCULAR HEMOGLOBIN 35.7 pg (27.0-33.0); MEAN CORPUSCULAR HGB CONC 33.5 g/dL (32.0-36.0); MEAN CORPUSCULAR VOLUME 106.8 fL (79-99); MONOCYTES % (AUTO) 11.2 % (3.0-13.0); NEUTROPHILS % (AUTO) 68.7 % (40.0-77.0); PLATELET COUNT (AUTO) 170 K/uL (130-400); RED BLOOD CELL COUNT(AUTO) 2.07 MIL/uL (4.50-6.20); RED CELL DISTRIBUTION WIDTH 19.6 % (11.0-15.5)
[2022-05-07 16:52] LABS: CREATININE 1.1 mg/dL (0.5-1.5); POTASSIUM 4.4 mmol/L (3.5-5.1)
[2022-05-07 16:56] LABS: ALBUMIN 1.7 g/dL (3.5-5.0)
[2022-05-07] MEDS ORDERED: FURO40TA7 PO (17:43)
[2022-05-07 17:52] VITALS: BP 133/70
== END 2022-05-07 18:17 | disposition home or self-care (01) ==
LOC: EDH 15:31
DX: R18.8 Other ascites (principal); I10 Essential (primary) hypertension; Z79.899 Other long term (current) drug therapy
CPT/HCPCS: 49083; 99285; 96374; 76705; 80053; 85025; 36415; J1940

== ENCOUNTER 2022-07-01 15:11 | Emergency (ER) | payer OTHER ==
[~2022-07-01] VITALS: Ht 175.3 cm; Wt 86.2 kg
[~2022-07-01 15:11] MED LIST changes: +FURO40TA7 PO
[2022-07-01 15:40] LABS: BASOPHILS % (AUTO) 0.6 % (0.0-5.0); EOSINOPHILS % (AUTO) 1.9 % (0.0-8.0); HEMATOCRIT 32.5 % (42-54); LYMPHOCYTES % (AUTO) 30.3 % (21.0-51.0); MEAN CORPUSCULAR HEMOGLOBIN 32.6 pg (27.0-33.0); MEAN CORPUSCULAR HGB CONC 34.5 g/dL (32.0-36.0); MEAN CORPUSCULAR VOLUME 94.5 fL (79-99); MONOCYTES % (AUTO) 10.5 % (3.0-13.0); NEUTROPHILS % (AUTO) 56.6 % (40.0-77.0); PLATELET COUNT (AUTO) 147 K/uL (130-400); RED BLOOD CELL COUNT(AUTO) 3.44 MIL/uL (4.50-6.20); RED CELL DISTRIBUTION WIDTH 16.1 % (11.0-15.5); WHITE BLOOD COUNT (AUTO) 6.7 K/uL (4.8-10.8)
[2022-07-01 15:42] LABS: APPEARANCE,URINE CLEAR (CLEAR); BILIRUBIN,URINE NEGATIVE (NEGATIVE); COLOR,URINE LIGHT-YELLOW (YELLOW); GLUCOSE, URINE (UA) NEGATIVE (NEGATIVE); KETONES,URINE NEGATIVE (NEGATIVE); LEUKOCYTE ESTERASE ,URINE NEGATIVE Leu/uL (NEGATIVE); NITRATE,URINE NEGATIVE (NEGATIVE); OCCULT BLOOD,URINE NEGATIVE (NEGATIVE); PROTEIN,URINE NEGATIVE (NEGATIVE); UROBILINOGEN,URINE 0.2 mg/dL (0.2-1.0)
[2022-07-01 15:47] LABS: CREATININE 0.9 mg/dL (0.5-1.5)
[2022-07-01 16:07] LABS: AMPHET/METH SCREEN,URINE NEGATIVE (NEGATIVE); BARBITURATE SCREEN, URINE NEGATIVE (NEGATIVE); BENZODIAZEPINES SCREEN,URINE NEGATIVE (NEGATIVE); CANNABINOID SCREEN,URINE NEGATIVE (NEGATIVE); COCAINE SCREEN,URINE NEGATIVE (NEGATIVE); PHENCYCLIDINE SCREEN,URINE NEGATIVE (NEGATIVE)
[2022-07-01] MEDS ORDERED: LACTULOSE 20 GM/30 ML UDCUP PO STA (16:40)
[2022-07-01 17:23] VITALS: BP 130/64
== END 2022-07-01 17:24 | disposition home or self-care (01) ==
LOC: EDH 15:11
DX: K72.90 Hepatic failure, unspecified without coma (principal); R78.9 Finding of unspecified substance, not normally found in blood; F32.A Depression, unspecified; I10 Essential (primary) hypertension; Z79.899 Other long term (current) drug therapy; Z86.73 Personal history of transient ischemic attack (TIA), and cerebral infarction without residual deficits
CPT/HCPCS: 36415; 80053; 80305; 81003; 82140; 85025

== ENCOUNTER → 2023-08-30 | Outpatient (CLI) | payer OTHER ==
[~2023-08-30] MED LIST changes: +GADOTERATE MEGLUMINE 10 MMOL/20 ML VIAL IV ONE
== END | disposition home or self-care (01) ==
LOC: RAH 09:18
PROVIDERS: ATTEND Internal Medicine
DX: I69.911 Memory deficit following unspecified cerebrovascular disease (principal)
CPT/HCPCS: 70553; A9575

== ENCOUNTER 2023-12-29 05:49 | Day surgery (SDC) | payer OTHER ==
[~2023-12-29] VITALS: Ht 180.3 cm; Wt 107.5 kg
[2023-12-29] VITALS (11 sets, daily range): BP systolic 105–126; BP diastolic 57–68; PULSE 50–59; RESP 11–18
[~2023-12-29 05:49] MED LIST changes: +BUSP10TA3 PO; +CYPR4TAB46 PO; -DIPH25TA20 PO; +DOXY100C5 PO; -FURO40TA7 PO; -GADOTERATE MEGLUMINE 10 MMOL/20 ML VIAL IV ONE; +HYDR-3421 PO; -IRON1TAB90 PO; +LACT10SO5 PO; +MELA5CAP PO; -METO5TAB2 PO; -OMEP40CA21 PO; +ONDA-104 PO; -ONDA22I IM; +PANT40TA54 PO; +RIFA550T PO; +SERT-438 PO; +SUCR1TAB2 PO
[2023-12-29] MEDS: 0.9%NACL 1000ML 1,000 ML IV ONE (06:46)
[2023-12-29] MEDS ORDERED: LIDOCAINE HCL 400MG/20ML VIAL ONE (07:35)
[2023-12-29] MEDS ORDERED: PROPOFOL 10 MG/ML 20ML VIAL IV ONE (07:35)
== END 2023-12-29 09:00 | disposition home or self-care (01) ==
LOC: DAH 05:49 → ENDO 05:49
PROVIDERS: ATTEND Internal Medicine Gastroenterology
DX: K70.31 Alcoholic cirrhosis of liver with ascites (principal); I85.10 Secondary esophageal varices without bleeding; K31.7 Polyp of stomach and duodenum; K29.50 Unspecified chronic gastritis without bleeding; I86.4 Gastric varices; G93.40 Encephalopathy, unspecified; K26.9 Duodenal ulcer, unspecified as acute or chronic, without hemorrhage or perforation; K59.00 Constipation, unspecified; K57.30 Diverticulosis of large intestine without perforation or abscess without bleeding; R12 Heartburn; K64.0 First degree hemorrhoids; I10 Essential (primary) hypertension; F41.9 Anxiety disorder, unspecified; F17.200 Nicotine dependence, unspecified, uncomplicated; Z72.89 Other problems related to lifestyle
CPT/HCPCS: 43251; 43239; J3490; J7030 ×2; J2704; A4620; A4215 ×2; A4223; A7002; A4222; A4221; A4663; A4606

== ENCOUNTER → 2024-01-31 | Outpatient (CLI) | payer OTHER ==
[~2024-01-31] VITALS: Ht 180.3 cm; Wt 110.2 kg
[~2024-01-31] MED LIST changes: +CARB-305 OU; +ERGO500093 PO; +OMEP40CA21 PO; +PSYLLIUM FIBER PO; +[UNRECOGNIZED DRUG - CODE] OU
[2024-01-31 13:29] LABS: BASOPHILS # (AUTO) 0.05 K/uL (0.00-0.20); BASOPHILS % (AUTO) 0.6 % (0.0-5.0); EOSINOPHILS # (AUTO) 0.15 K/uL (0.00-0.70); EOSINOPHILS % (AUTO) 1.7 % (0.0-8.0); HEMATOCRIT 42.7 % (42-54); IMMATURE GRANULOCYTE ABSOLUTE 0.02 K/uL (0-1); LYMPHOCYTES # (AUTO) 2.7 K/uL (1.0-4.8); LYMPHOCYTES % (AUTO) 31.6 % (21.0-51.0); MEAN CORPUSCULAR HEMOGLOBIN 33.4 pg (27.0-33.0); MEAN CORPUSCULAR HGB CONC 35.4 g/dL (32.0-36.0); MEAN CORPUSCULAR VOLUME 94.5 fL (79-99); MONOCYTES # (AUTO) 1.3 K/uL (0.1-1.0); MONOCYTES % (AUTO) 14.7 % (3.0-13.0); NEUTROPHILS # (AUTO) 4.4 K/uL (1.8-7.7); NEUTROPHILS % (AUTO) 51.2 % (40.0-77.0); PLATELET COUNT (AUTO) 149 K/uL (130-400); RED BLOOD CELL COUNT(AUTO) 4.52 MIL/uL (4.50-6.20); RED CELL DISTRIBUTION WIDTH 14.2 % (11.0-15.5); WHITE BLOOD COUNT (AUTO) 8.7 K/uL (4.8-10.8)
[2024-01-31 13:37] VITALS: BP 142/70; PULSE 59; RESP 16
[2024-01-31 13:38] LABS: CREATININE 0.7 mg/dL (0.5-1.3); POTASSIUM 4.1 mmol/L (3.5-5.1)
[2024-01-31 13:45] LABS: INR 1.08 (0.85-1.15); PROTHROMBIN TIME 12.7 SEC (9.6-11.6)
[2024-01-31 13:47] LABS: PARTIAL THROMBOPLASTIN TIME 30.4 SEC (26.3-35.5)
[2024-01-31 14:03] LABS: B-TYPE NATRIURETIC PEPTIDE 12 pg/mL (0-100)
[2024-01-31 14:15] LABS: APPEARANCE,URINE CLEAR (CLEAR); BILIRUBIN,URINE NEGATIVE (NEGATIVE); COLOR,URINE DARK-YELLOW (YELLOW); GLUCOSE, URINE (UA) NEGATIVE (NEGATIVE); KETONES,URINE NEGATIVE (NEGATIVE); LEUKOCYTE ESTERASE ,URINE NEGATIVE Leu/uL (NEGATIVE); NITRATE,URINE NEGATIVE (NEGATIVE); OCCULT BLOOD,URINE NEGATIVE (NEGATIVE); PROTEIN,URINE 20 mg/dL (NEGATIVE); UROBILINOGEN,URINE 0.2 mg/dL (0.2-1.0)
[2024-01-31 14:21] LABS: ADD UA MICROSCOPIC YES
[2024-01-31 14:26] LABS: MUCUS,URINE MANY LPF (None Seen); SQUAMOUS EPITHELIAL CELL,UR RARE /HPF (0-2)
== END | disposition home or self-care (01) ==
LOC: DAH 10:00 → EDSTATUS 12:00 → DAH 02-02 11:10
PROVIDERS: ATTEND Internal Medicine Cardiovascular Disease
DX: Z01.810 Encounter for preprocedural cardiovascular examination (principal); I12.0 Hypertensive chronic kidney disease with stage 5 chronic kidney disease or end stage renal disease; N18.6 End stage renal disease; K72.10 Chronic hepatic failure without coma; I65.23 Occlusion and stenosis of bilateral carotid arteries
CPT/HCPCS: 36415; 71045; 80048; 81001; 83880; 85025; 85610; 85730; 93005

== ENCOUNTER 2025-02-21 08:45 | Day surgery (SDC) | payer OTHER ==
[2025-02-21] VITALS (11 sets, daily range): BP systolic 106–139; BP diastolic 46–86; PULSE 56–64; RESP 14–18; TEMP 97.3–99
[~2025-02-21] VITALS: Ht 180.3 cm; Wt 119.3 kg
[~2025-02-21 08:45] MED LIST changes: +0.9%NACL 1000ML 1,000 ML IV ONE; +LACT-441 PO; -LACT10SO5 PO
[2025-02-21] MEDS ORDERED: proPOFol 10 MG/ML 20ML VIAL IV ONE (11:43)
== END 2025-02-21 13:05 | disposition home or self-care (01) ==
LOC: ENDO 08:45
PROVIDERS: ATTEND Internal Medicine Gastroenterology
DX: K70.31 Alcoholic cirrhosis of liver with ascites (principal); K21.00 Gastro-esophageal reflux disease with esophagitis, without bleeding; I85.10 Secondary esophageal varices without bleeding; K31.89 Other diseases of stomach and duodenum; K29.50 Unspecified chronic gastritis without bleeding; K76.6 Portal hypertension; F41.9 Anxiety disorder, unspecified; I10 Essential (primary) hypertension; G47.33 Obstructive sleep apnea (adult) (pediatric); R93.2 Abnormal findings on diagnostic imaging of liver and biliary tract; G93.40 Encephalopathy, unspecified; D12.6 Benign neoplasm of colon, unspecified; K57.30 Diverticulosis of large intestine without perforation or abscess without bleeding; Z79.899 Other long term (current) drug therapy
CPT/HCPCS: 43239; J7030; J2704; A4620; A4215 ×2; A4223; A4657; A4222; A4221; A4663; A4606; J3490